=== PATIENT | male | born 1950 | race Caucasian/White ===

== ENCOUNTER 2023-01-05 15:23 | Outpatient (CLI) | payer MEDICARE, BC, SELFPAY ==
[2023-01-05 18:51] LABS: MALB Creatinine Ratio < 7.9 mg/g (0-30); Microalbumin Urine Random < 6.0 mg/L (0-16.7)
== END 2023-01-05 15:24 | disposition home or self-care (01) ==
LOC: ANHWCLAB 15:25
PROVIDERS: Visit Provider Internal Medicine Endocrinology, Diabetes & Metabolism
DX: E11.9 Type 2 diabetes mellitus without complications (principal)
CPT/HCPCS: 82043